=== PATIENT | female | born 1970 | race Two or more races ===

== ENCOUNTER 2016-08-03 12:59 | Emergency (ER) | payer SELFPAY ==
[2016-08-03 13:15] VITALS: TEMP 98.3; BMI 30.4
[2016-08-03] MEDS ORDERED: FAMOTIDINE 20 MG/50 ML IVPB 50 ML IVPB ONE ×2 (14:07→14:09)
[2016-08-03] MEDS ORDERED: MAG HYDROX/AL HYDROX/SIMETH 30 ML UNIT-DOSE CUP PO ONE (14:07)
[2016-08-03] MEDS ORDERED: SUCRALFATE 1 GM TABLET (FP) PO ONE (14:07)
[2016-08-03] MEDS ORDERED: ONDANSETRON 4 MG/2 ML VIAL IVPUSH ONE (14:08)
[2016-08-03] MEDS ORDERED: SODIUM CHLORIDE 1,000 ML IV STA (14:08)
[2016-08-03] MEDS ORDERED: ONDANSETRON 4 MG/2 ML VIAL ONE (14:09)
[2016-08-03] MEDS ORDERED: SUCRALFATE 1 GM TABLET (FP) ONE (14:09)
[2016-08-03] MEDS ORDERED: MAG HYDROX/AL HYDROX/SIMETH 30 ML UNIT-DOSE CUP ONE (14:09)
--- NOTE | 2016-08-03 14:35 | PDOC ---
History of Present Illness - General Chief Complaint: Pain Stated Complaint: ABD PAIN, DIARRHEA Time Seen by Provider: 08/03/16 13:47 History Source: Patient - History of Present Illness Timing/Duration: reports: constant Quality: reports: severe Pain Radiation: reports: no radiation Past History - Past Medical History Allergies/Adverse Reactions: Allergies Allergy/AdvReac Type Severity Reaction Status Date / Time No Known Allergies Allergy Verified 08/03/16 13:09 Home Medications: Ambulatory Orders Famotidine [Pepcid] 20 mg PO DAILY #14 tablet 08/03/16 Sucralfate [Carafate -] 1 gm PO Q6H #28 tablet 08/03/16 Tramadol HCl 50 mg PO Q6H #12 tablet MDD 200 mg 08/03/16 Other medical history: NONE - Reproductive History Uterine Fibroids: Yes - Immunization History Immunization Up to Date: Yes - Psycho/Social/Smoking Cessation Hx Anxiety: No Suicidal Ideation: No Smoking Status: No Smoking History: Never smoked Number of Cigarettes Smoked Daily: 0 Hx Alcohol Use: Yes (SOCIAL) Drug/Substance Use Hx: No Substance Use Type: None Hx Substance Use Treatment: No Review of Systems - Review of Systems Constitutional: No: Chills, Fever Respiratory: No: Shortness of Breath Cardiac (ROS): No: Chest Pain ABD/GI: Yes: Blood Streaked Bowels, Nausea, Vomiting. No: Constipated, Diarrhea : No: Dysuria *Physical Exam - Vital Signs Last Vital Signs Temp Pulse Resp BP Pulse Ox 98.3 F 99 H 20 130/49 98 08/03/16 12:59 08/03/16 12:59 08/03/16 12:59 08/03/16 12:59 08/03/16 12:59 - Physical Exam Comments: 08/03/16 14:37 Pt writhing in pain on stretcher General Appearance: Yes: Appropriately Dressed, Moderate Distress HEENT: positive: Normal Voice Neck: positive: Supple Respiratory/Chest: negative: Respiratory Distress Gastrointestinal/Abdominal: positive: Normal Bowel Sounds, Tender (to epigastrium), Soft. negative: Distended, Guarding, Rebound Musculoskeletal: negative: CVA Tenderness Extremity: positive: Normal Inspection Integumentary: positive: Dry, Warm Neurologic: positive: Fully Oriented, Alert, Normal Mood/Affect ED Treatment Course - LABORATORY CBC & Chemistry Diagram: 08/03/16 14:17 08/03/16 14:17 - Medications Given in the ED: ED Medications Discontinued Medications Generic Name Dose Route Start Last Admin Trade Name Oscar PRN Reason Stop Dose Admin Al Hydroxide/Mg Hydroxide 30 ml 08/03/16 14:07 08/03/16 14:20 Mylanta Oral Suspension - PO 08/03/16 14:08 30 ml ONCE ONE Administration Ondansetron HCl 4 mg 08/03/16 14:08 08/03/16 14:25 Zofran Injection IVPUSH 08/03/16 14:09 4 mg ONCE ONE Administration Sucralfate 1 gm 08/03/16 14:07 08/03/16 14:20 Carafate - PO 08/03/16 14:08 1 gm ONCE ONE Administration Medical Decision Making - Medical Decision Making 08/03/16 14:29 46-year-old female, status post hysterectomy for unclear reasons, gastric ulcer on endoscopy 2015 as per pt, p/w severe upper abd pain w/ n/v this am. Also c/o BRBPR x 1 this am. No melena, diarrhea, f/c. See exam Epigastric pain in pt w/ known gastric ulcer Stable w/ sig ttp to epigastrium, NT to RUQ or mcburneys -GI cocktail including dose of sucralfate -IVF -labs -reassess 08/03/16 14:37 08/03/16 14:38 08/03/16 15:28 Pt sig improved w/ meds and appears more comfortable. On rpt abd exam, pt has ttp to RLQ and labs reveals wbc of 18 w/ L shift. Will scan at this time 08/03/16 16:30 08/03/16 17:47 CT a/p read as neg for acute intra-abd or obvious pelvic ab/nl. Pt sig improved w/ meds. Stable for discharge w/ meds and GI f/u 08/03/16 17:58 08/03/16 18:29 *DC/Admit/Observation/Transfer Diagnosis at time of Disposition: Abdominal pain Qualifiers: Abdominal location: epigastric Qualified Code(s): R10.13 - Epigastric pain - Discharge Dispostion Disposition: HOME Condition at time of disposition: Improved - Prescriptions Prescriptions: Sucralfate [Carafate -] 1 gm PO Q6H #28 tablet Famotidine [Pepcid] 20 mg PO DAILY #14 tablet Tramadol HCl 50 mg PO Q6H #12 tablet MDD 200 mg - Patient Instructions Printed Discharge Instructions: DI for Epigastric Pain, Gastric Ulcer Additional Instructions: Please take medications as directed and follow up with your gastoenterologist in 1 week Print Language: GREENLAND[place]
[2016-08-03 14:38] LABS: BASOPHIL 0.2 % (0-2.0); MCH 24.7 pg (25.7-33.7); MCHC 31.7 g/dl (32.0-36.0); MEAN CELL VOLUME 77.8 fl (80-96); MEAN PLT VOLUME 7.9 fl (7.5-11.1); NEUTROPHILS 91.1 % (42.8-82.8); PLATELET COUNT 355 K/MM3 (134-434); RDW 17.2 % (11.6-15.6); WHITE BLOOD COUNT 18.6 K/mm3 (4.0-10.0)
[2016-08-03 14:39] LABS: URINE APPEARANCE CLEAR; URINE BILIRUBIN 1+ (NEGATIVE); URINE BLOOD TRACE-INTA (NEGATIVE); URINE COLOR YELLOW; URINE GLUCOSE (UA) NEGATIVE (NEGATIVE); URINE KETONE TRACE (NEGATIVE); URINE LEUK ESTERASE NEGATIVE (NEGATIVE); URINE NITRITE NEGATIVE (NEGATIVE); URINE UROBILINOGEN 0.2 E.U/dl E.U./dl (0.2-1.0)
[2016-08-03 14:40] LABS: URINE PROTEIN 1+ (NEGATIVE)
[2016-08-03 14:53] LABS: URINE RBC QNS FOR MICRO /hpf (0-3)
[2016-08-03 15:05] LABS: ALBUMIN 4.6 g/dl (3.4-5.0); ALK PHOS 84 U/L (45-117); ANION GAP 12 (8-16); BILIRUBIN,TOTAL 0.4 mg/dL (0.2-1.0); CALCIUM 9.4 mg/dL (8.5-10.1); CO2 24 mmol/L (21-32); CREATININE 0.7 mg/dL (0.55-1.02); GLUCOSE,RANDOM 98 mg/dL (74-106); SGOT/AST 25 U/L (15-37); SGPT/ALT 32 U/L (12-78); TOT PROT 8.3 g/dl (6.4-8.2)
[2016-08-03] MEDS ORDERED: morphine CARPU-JECT 4 MG/1 ML DISP.SYRIN IVPUSH ONE (15:51)
[2016-08-03] MEDS ORDERED: morphine CARPU-JECT 4 MG/1 ML DISP.SYRIN ONE (16:03)
[2016-08-03 18:43] VITALS: BP 110/75; PULSE 76
== END 2016-08-03 18:43 | disposition home or self-care (01) ==
LOC: JER 12:59
PROC: 3E033GC Introduction of Other Therapeutic Substance into Peripheral Vein, Percutaneous Approach (ICD-10-PCS; principal; 2016-08-03)
DX: R10.13 Epigastric pain (principal); Z87.19 Personal history of other diseases of the digestive system
CPT/HCPCS: 36415; 74177-TC; 80053; 81003; 81015; 82272; 83690; 85025; 99282-25

== ENCOUNTER 2020-09-24 05:04 | Day surgery (SDC) | payer OTHER ==
[2020-09-23 12:18] VITALS: BMI 35.2
[2020-09-24 12:54] VITALS: TEMP 97.7
[2020-09-24 14:36] VITALS: BP 117/82; PULSE 79
== END 2020-09-24 13:58 | disposition home or self-care (01) ==
LOC: JASU-ENDO 05:04
PROVIDERS: ATTEND Internal Medicine Gastroenterology
PROC: 0DB78ZX Excision of Stomach, Pylorus, Via Natural or Artificial Opening Endoscopic, Diagnostic (ICD-10-PCS; 2020-09-24)
PROC: 0DJD8ZZ Inspection of Lower Intestinal Tract, Via Natural or Artificial Opening Endoscopic (ICD-10-PCS; principal; 2020-09-24 11:30)
DX: Z12.11 Encounter for screening for malignant neoplasm of colon (principal); K44.9 Diaphragmatic hernia without obstruction or gangrene
CPT/HCPCS: 43239; G0121; 88305-TC; 88342-TC

== ENCOUNTER 2022-05-31 05:35 | Day surgery (SDC) | payer OTHER ==
[2022-05-30 10:02] VITALS: BMI 33.3
[2022-05-31] MEDS ORDERED: LIDOCAINE VISCOUS 2% ORAL/TOP 15 ML UNIT-DOSE CUP ONE (11:56)
[2022-05-31 13:08] VITALS: BP 131/87; PULSE 76; RESP 18; TEMP 97.5
== END 2022-05-31 13:19 | disposition home or self-care (01) ==
LOC: JASU-ENDO 05:35
PROVIDERS: ATTEND Student in an Organized Health Care Education/Training Program
PROC: 0DB78ZX Excision of Stomach, Pylorus, Via Natural or Artificial Opening Endoscopic, Diagnostic (ICD-10-PCS; 2022-05-31)
PROC: 0DB68ZX Excision of Stomach, Via Natural or Artificial Opening Endoscopic, Diagnostic (ICD-10-PCS; principal; 2022-05-31 12:30)
DX: K29.50 Unspecified chronic gastritis without bleeding (principal); K44.9 Diaphragmatic hernia without obstruction or gangrene
CPT/HCPCS: 88305-TC; 88342-TC

== ENCOUNTER → 2024-01-24 | Day surgery (SDC) | payer OTHER | END | disposition home or self-care (01) | LOC: JRADUS-SUR 09:40 | PROVIDERS: ATTEND Physician Assistant | PROC: 07D53ZX Extraction of Right Axillary Lymphatic, Percutaneous Approach, Diagnostic (ICD-10-PCS; principal; 2024-01-24) | DX: R59.0 Localized enlarged lymph nodes (principal) | CPT/HCPCS: 19083; 76942-TC; 87899; 88305-TC; 88341-TC; 88342-TC; A4648 ==